=== PATIENT | female | born 1970 | race Caucasian/White ===

== ENCOUNTER 2017-09-19 13:05 | Emergency (ER) | payer BC, OTHER ==
[2017-09-19 13:32] VITALS: BP 195/100; PULSE 117; O2SAT 99
--- NOTE | 2017-09-19 14:41 | ERPHSYRPT ---
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 able to make a fist and grasp is moderate to right side. pt has no swelling or bruising noted. states pain to lateral aspect of arm Physician History: 46-year-old white female with history of diabetes right with complaint of pain in her right forearm symptoms since she fell down several steps after tripping over a cat. She states she has pain in the right forearm was worse with gripping she also has pain in the right forearm if she elevates her right shoulder greater than 120. She has no pain in her right upper arm other than which is radiated from her right shoulder. She denies any other complaints. Past medical history includes diabetes. Past surgical history includes appendectomy and hysterectomy. Social history patient denies tobacco alcohol or illicit drug use. Occurred: days ago (3 days ago) Method of Injury: fell Quality: aching Severity of Pain-Max: moderate Severity of Pain-Current: moderate Extremities Pain Location: forearm: right Modifying Factors: Improves With: movement Associated Symptoms: none Allergies/Adverse Reactions: cephalexin [From Keflex] Allergy (Verified 09/19/17 13:34) latex Allergy (Verified 09/19/17 13:34) Home Medications: No Reportable Medications [No Reported Medications] 09/19/17 [History] - Review of Systems Constitutional: No Fever, No Chills Eyes: No Symptoms Ears, Nose, & Throat: No Symptoms Respiratory: No Cough, No Dyspnea Cardiac: No Chest Pain, No Edema, No Syncope Abdominal/Gastrointestinal: No Abdominal Pain, No Nausea, No Vomiting, No Diarrhea Genitourinary Symptoms: No Dysuria Musculoskeletal: Fall, Injury, Other (pain right forearm), No Arthralgias, No Back Pain, No Neck Pain, No Deformity, No Joint Redness, No Joint Pain, No Joint Swelling, No Myalgias Skin: No Rash Neurological: No Dizziness, No Focal Weakness, No Sensory Changes Psychological: No Symptoms Endocrine: No Symptoms All Other Systems: Reviewed and Negative - Past Medical History Pertinent Past Medical History: Yes Endocrine Medical History: Diabetes Type II - Past Surgical History Past Surgical History: Yes Gastrointestinal: Appendectomy Female Surgical History: Hysterectomy - Social History Smoking Status: Never smoker - Female History Hx Now: No - Nursing Vital Signs Nursing Vital Signs: Initial Vital Signs Temperature 97.9 F 09/19/17 13:26 Pulse Rate 117 H 09/19/17 13:26 Respiratory Rate 18 09/19/17 13:26 Blood Pressure 195/100 09/19/17 13:26 O2 Sat by Pulse Oximetry 99 09/19/17 13:26 Pain Scale Pain Intensity 7 - Physical Exam General Appearance: other (wwell-developed obese white female, alert, oriented pleasant and cooperative to examination) Eyes, Ears, Nose, Throat Exam: moist mucous membranes Neck Exam: non-tender, supple Cardiovascular/Respiratory Exam: chest non-tender, normal breath sounds, regular rate/rhythm, no respiratory distress Abdominal Exam: non-tender, No guarding Back Exam: normal inspection, No vertebral tenderness Shoulder Exam: normal inspection, non-tender, normal ROM Elbow/Forearm Exam: No normal inspection (right forearm tender with palpation, pain in right forearm with gripping, full range of motion right elbow) Wrist Exam: normal inspection, No normal ROM (pain in right forearm with movement of right wrist) Hand Exam: normal inspection, non-tender, no evidence of injury, normal ROM Neuro/Tendon Exam: normal sensation, normal motor functions Mental Status Exam: alert, oriented x 3, cooperative Skin Exam: normal color, warm, dry SpO2 Interpretation: normal (99%) SpO2: 99 Oxygen Delivery: Room Air - Course Nursing assessment & vital signs reviewed: Yes - Radiology Exams Right Forearm X-ray Interpretation: Discussed w/ radiologist (x-ray right forearm: Tiny medial elbow heterotropic ossification either degenerative versus old injury. No other bony,, articular, or soft tissue abnormalies) Ordered Tests: Active Orders 24 hr Category Date Time Status FOREARM Stat Exams 09/19/17 14:35 Completed - Progress Progress: improved Progress Note: 09/19/17 14:40 46-year-old white female arrives with complaint right forearm pain since falling 3 days ago. She has pain with palpation right forearm pain with gripping of her right hand pain with movement of her right wrist and pain with elevating her right shoulder greater than 120 which she states is radiating from her right forearm she has no pain with palpation to her right shoulder or humerus/ Patient is offered Toradol for pain she states she really doesn't want any pain medications at this time. X-ray of the forearm has been ordered 09/19/17 15:06 x-ray right forearm: Negative fracture negative dislocation. Patient does not want a sling she states she will take Advil or Tylenol at home - Departure Time of Disposition: 15:07 Departure Disposition: Home Clinical Impression: Pain in right forearm Contusion of right forearm Qualifiers: Encounter type: initial encounter Qualified Code(s): S50.11XA - Contusion of right forearm, initial encounter Condition: Fair Critical Care Time: No Referrals: AUGUSTO BATISTA MD [Primary Care Provider] - Additional Instructions: Return home. Cold packs to right forearm 24-48 hours, Limited use of right upper extremity 48 hours. Follow-up with your family doctor if symptoms are worse no better in 48 hours or persist longer than 72 hours. Tylenol every 4 hours or Motrin every 6 hours as needed for pain. Return for acute distress or for severe symptoms.
--- NOTE | 2017-09-19 14:59 | XRAY ---
Indication: Pain following fall. Comparison: None 2 views of the right forearm demonstrates tiny medial elbow heterotopic ossification either degenerative versus old injury. No other bony, articular, or soft tissue abnormalities.
== END 2017-09-19 15:16 | disposition home or self-care (01) ==
LOC: ED 13:05
DX: S50.11XA Contusion of right forearm, initial encounter (principal); M79.631 Pain in right forearm; W10.9XXA Fall (on) (from) unspecified stairs and steps, initial encounter
CPT/HCPCS: 73090; 99283